=== PATIENT | female | born 1990 | race Caucasian/White ===

== ENCOUNTER 2025-06-17 09:53 | Emergency (ER) | payer OTHER ==
[~2025-06-17] VITALS: Ht 160 cm; Wt 75.9 kg
[2025-06-17 14:00] VITALS: BP 118/67; PULSE 59; RESP 18; TEMP 97.9; O2SAT 99
== END 2025-06-17 14:02 | disposition home or self-care (01) ==
LOC: EMS 09:53
DX: S90.122A Contusion of left lesser toe(s) without damage to nail, initial encounter (principal); F12.90 Cannabis use, unspecified, uncomplicated; Z98.51 Tubal ligation status; W22.8XXA Striking against or struck by other objects, initial encounter; Y93.89 Activity, other specified; Y92.89 Other specified places as the place of occurrence of the external cause; Y99.8 Other external cause status
CPT/HCPCS: 99283